=== PATIENT | male | born 1960 | race African-American/Black ===

== ENCOUNTER 2023-02-26 19:06 | Inpatient (IN) | payer OTHER ==
[2023-02-26 19:54] VITALS: BMI 26.9
[2023-02-26] MEDS ORDERED: ACETAMINOPHEN 325 MG TABLET (FP) PO PRN (21:53)
[2023-02-26] MEDS ORDERED: ONDANSETRON *ODT* 4 MG TABLET SL PRN (21:53)
[2023-02-26] MEDS ORDERED: guaiFENesin 600 MG TABLET.ER (FP) PO PRN (21:53)
[2023-02-26] MEDS ORDERED: LOPERAMIDE HCL 2 MG CAPSULE PO PRN (21:53)
[2023-02-26] MEDS ORDERED: BENZOCAINE/MENTHOL (CHLORASEPTIC ) LOZENGE MM PRN (21:53)
[2023-02-26] MEDS ORDERED: NICOTINE POLACRILEX 2 MG GUM BUC PRN (21:53)
[2023-02-26] MEDS ORDERED: DICYCLOMINE HCL 10 MG CAPSULE PO PRN (21:53)
[2023-02-26] MEDS ORDERED: chlordiazePOXIDE HCL 25 MG CAPSULE PO PRN (21:53)
[2023-02-26] MEDS ORDERED: IBUPROFEN 600 MG TABLET (FP) PO PRN (21:53)
[2023-02-26] MEDS ORDERED: NALOXONE HCL 0.4 MG/ML VIAL IM PRN (21:53)
[2023-02-26] MEDS ORDERED: BISMUTH SUBSALICYLATE 524 MG/30 ML PO PRN (21:53)
[2023-02-26] MEDS ORDERED: MAGNESIUM HYDROX 2400MG/30ML ORAL SUSPENSION 30 ML CUP PO PRN (21:53)
[2023-02-26] MEDS ORDERED: MAG HYDROX/AL HYDROX/SIMETH 30 ML UNIT-DOSE CUP PO PRN (21:53)
[2023-02-26] MEDS ORDERED: IBUPROFEN 400 MG TABLET (FP) PO PRN (21:53)
[2023-02-26] MEDS ORDERED: POLYETHYLENE GLYCOL (HEALTHYLAX) 3350 17 GM PACKET PO PRN (21:53)
[2023-02-26] MEDS ORDERED: NALOXONE HCL (KLOXXADO) 8 MG SPRAY NS PRN (21:53)
[2023-02-26] MEDS ORDERED: BENZONATATE 200 MG CAPSULE PO PRN (21:53)
[2023-02-26] MEDS: MELATONIN 5 MG TABLETS PO SCH (22:11)
[2023-02-26] MEDS: THIAMINE HCL 100 MG TABLET (FP) PO SCH (22:11)
[2023-02-26] MEDS ORDERED: chlordiazePOXIDE HCL 25 MG CAPSULE ONE (23:02)
[2023-02-26] MEDS: chlordiazePOXIDE HCL 25 MG CAPSULE PO SCH (23:12)
[2023-02-27] MEDS: chlordiazePOXIDE HCL 25 MG CAPSULE PO SCH ×4 (05:06→22:48)
[2023-02-27 09:56] LABS: HEMATOCRIT 39.1 % (35.4-49); HEMOGLOBIN 13.3 GM/dL (11.7-16.9); MCH 30.8 pg (25.7-33.7); MCHC 34.1 g/dl (32.0-35.9); MEAN CELL VOLUME 90.2 fl (80-96); PLATELET COUNT 72 10^3/uL (134-434); RBC 4.33 M/mm3 (4.00-5.60); RDW 15.9 % (11.9-15.9); WHITE BLOOD COUNT 5.6 K/mm3 (4.0-10.0)
[2023-02-27 09:57] LABS: POTASSIUM 3.9 mmol/L (3.5-5.1)
[2023-02-27 10:06] LABS: ALBUMIN 3.8 g/dl (3.4-5.0); BLOOD UREA NITROGEN 25.6 mg/dL (7-18); CALCIUM 9.7 mg/dL (8.5-10.1)
[2023-02-27 10:09] LABS: CREATININE 1.2 mg/dL (0.55-1.3)
[2023-02-27 10:10] LABS: BILIRUBIN,TOTAL 0.9 mg/dL (0.2-1); TOT PROT 8.1 g/dl (6.4-8.2)
[2023-02-27] MEDS: PRENATAL VITAMINS W/ FOLIC ACID TABLET (FP) PO SCH (10:18)
[2023-02-27] MEDS: NICOTINE 21 MG/24 HOURS TOPICAL PATCH TD SCH (10:20)
[2023-02-27] MEDS ORDERED: LACTULOSE 20 GM/30 ML UDC (FOR ORAL USE ONLY) PO ONE (17:08)
[2023-02-27] MEDS: MELATONIN 5 MG TABLETS PO SCH (22:48)
[2023-02-27] MEDS: THIAMINE HCL 100 MG TABLET (FP) PO SCH (22:48)
[2023-02-28] MEDS ORDERED: chlordiazePOXIDE HCL 25 MG CAPSULE PO SCH (05:00)
[2023-02-28] MEDS: PRENATAL VITAMINS W/ FOLIC ACID TABLET (FP) PO SCH (10:22)
[2023-02-28] MEDS: LACTULOSE 20 GM/30 ML UDC (FOR ORAL USE ONLY) PO SCH ×4 (10:23→22:12)
[2023-02-28] MEDS: NICOTINE 21 MG/24 HOURS TOPICAL PATCH TD SCH (10:23)
[2023-02-28 10:56] LABS: POTASSIUM 3.6 mmol/L (3.5-5.1)
[2023-02-28 11:11] LABS: ALBUMIN 3.5 g/dl (3.4-5.0)
[2023-02-28 11:12] LABS: CALCIUM 9.7 mg/dL (8.5-10.1)
[2023-02-28 11:13] LABS: BLOOD UREA NITROGEN 21.2 mg/dL (7-18)
[2023-02-28 11:15] LABS: BILIRUBIN,TOTAL 0.9 mg/dL (0.2-1); TOT PROT 7.2 g/dl (6.4-8.2)
[2023-02-28] MEDS ORDERED: LORazepam 1 MG TABLET PO PRN (12:04)
[2023-02-28] MEDS: RIFAXIMIN 550 MG TABLET PO SCH ×2 (13:44→22:10)
[2023-02-28] MEDS: LORazepam 1 MG TABLET PO SCH ×2 (17:31→22:11)
[2023-02-28] MEDS: THIAMINE HCL 100 MG TABLET (FP) PO SCH (22:11)
[2023-02-28] MEDS: MELATONIN 5 MG TABLETS PO SCH (22:11)
[2023-03-01] MEDS ORDERED: chlordiazePOXIDE HCL 10 MG CAPSULE PO PRN
[2023-03-01] MEDS ORDERED: chlordiazePOXIDE HCL 10 MG CAPSULE PO SCH (05:00)
[2023-03-01] MEDS: LORazepam 1 MG TABLET PO SCH ×4 (05:39→22:00)
[2023-03-01] MEDS: NICOTINE 21 MG/24 HOURS TOPICAL PATCH TD SCH (10:37)
[2023-03-01] MEDS: PRENATAL VITAMINS W/ FOLIC ACID TABLET (FP) PO SCH (10:37)
[2023-03-01] MEDS: LACTULOSE 20 GM/30 ML UDC (FOR ORAL USE ONLY) PO SCH ×4 (10:38→21:55)
[2023-03-01] MEDS: RIFAXIMIN 550 MG TABLET PO SCH ×2 (10:38→21:55)
[2023-03-01 15:47] LABS: PH,URINE 6.5 (5.0-8.0); URINE APPEARANCE CLEAR; URINE BILIRUBIN NEGATIVE (NEGATIVE); URINE COLOR DK YELLOW; URINE GLUCOSE (UA) NEGATIVE (NEGATIVE); URINE KETONE NEGATIVE (NEGATIVE); URINE LEUK ESTERASE NEGATIVE (NEGATIVE); URINE NITRITE NEGATIVE (NEGATIVE); URINE PROTEIN TRACE (NEGATIVE)
[2023-03-01] MEDS: THIAMINE HCL 100 MG TABLET (FP) PO SCH (21:55)
[2023-03-01] MEDS: MELATONIN 5 MG TABLETS PO SCH (21:56)
[2023-03-02] MEDS ORDERED: LORazepam 0.5 MG TABLET PO PRN
[2023-03-02] MEDS ORDERED: chlordiazePOXIDE HCL 10 MG CAPSULE PO SCH (05:00)
[2023-03-02] MEDS: LORazepam 0.5 MG TABLET PO SCH ×4 (06:00→22:06)
[2023-03-02] MEDS: PRENATAL VITAMINS W/ FOLIC ACID TABLET (FP) PO SCH (10:44)
[2023-03-02] MEDS: NICOTINE 21 MG/24 HOURS TOPICAL PATCH TD SCH (10:44)
[2023-03-02] MEDS: RIFAXIMIN 550 MG TABLET PO SCH ×2 (10:44→22:06)
[2023-03-02] MEDS: LACTULOSE 20 GM/30 ML UDC (FOR ORAL USE ONLY) PO SCH ×4 (10:47→22:07)
[2023-03-02] MEDS: THIAMINE HCL 100 MG TABLET (FP) PO SCH (22:06)
[2023-03-02] MEDS: MELATONIN 5 MG TABLETS PO SCH (22:07)
[2023-03-03] MEDS ORDERED: chlordiazePOXIDE HCL 10 MG CAPSULE PO ONE (05:00)
[2023-03-03] MEDS: LORazepam 0.5 MG TABLET PO SCH (05:54)
[2023-03-03] MEDS: PRENATAL VITAMINS W/ FOLIC ACID TABLET (FP) PO SCH (10:12)
[2023-03-03] MEDS: RIFAXIMIN 550 MG TABLET PO SCH (10:12)
[2023-03-03] MEDS: NICOTINE 21 MG/24 HOURS TOPICAL PATCH TD SCH (10:12)
[2023-03-03] MEDS: LACTULOSE 20 GM/30 ML UDC (FOR ORAL USE ONLY) PO SCH (10:14)
[2023-03-03 13:06] VITALS: BP 144/95; PULSE 82; RESP 17; TEMP 96.4
== END 2023-03-03 13:40 | disposition home or self-care (01) | DRG 775 ==
LOC: YASAS 19:06 → Y6N 22:23
PROVIDERS: ADMIT Allergy & Immunology; ATTEND Surgery
PROC: HZ2ZZZZ Detoxification Services for Substance Abuse Treatment (ICD-10-PCS; principal; 2023-02-26)
DX: F10.230 Alcohol dependence with withdrawal, uncomplicated (principal); F17.210 Nicotine dependence, cigarettes, uncomplicated; F10.282 Alcohol dependence with alcohol-induced sleep disorder; F10.280 Alcohol dependence with alcohol-induced anxiety disorder; F19.24 Other psychoactive substance dependence with psychoactive substance-induced mood disorder; I10 Essential (primary) hypertension; M54.50 Low back pain, unspecified; G89.18 Other acute postprocedural pain; R79.89 Other specified abnormal findings of blood chemistry; Z91.81 History of falling; Z99.89 Dependence on other enabling machines and devices
CPT/HCPCS: 36415; 80053; 81003; 82140; 83036; 85027; 86780; 87811; 93005; 93010; C9803-CS; U0003; U0005